=== PATIENT | female | born 1935 | race Caucasian/White ===

== ENCOUNTER 2016-11-15 22:38 | Observation (INO) | payer OTHER ==
--- NOTE | 2016-11-15 23:05 | EDPHY ---
H & P Stated Complaint: per ems - family says pt wandering around, having distinct memory def Time Seen by Provider: 11/15/16 23:01 HPI/ROS: HPI The patient presents as a stroke activation brought in by EMS from her home where at about 9:00 p.m. tonight she was last seen normal. At about 10:00 p.m. , her son noticed that she was feeling with things at her bedside and seems somewhat confused. He then asked her her name and his name and she did not respond at all. He has few minutes later showed him there to fingers and she was able to say 2. Over time she became more and more responsive and was eventually back to her usual self. She has been feeling well earlier in the day. She did not have any weakness in her arms or legs or any other symptoms. REVIEW OF SYSTEMS Constitutional: No fever, no chills. Eyes: No discharge. ENT: No sore throat. Cardiovascular: No chest pain, no palpitations. Respiratory: No cough, no shortness of breath. Gastrointestinal: No abdominal pain, no vomiting. Genitourinary: No hematuria. Musculoskeletal: No back pain. Skin: No rashes. Neurological: No headache. PMHx: Subdural hematoma, basal cell carcinoma, hypertension Soc Hx: Lives at home PHYSICAL General Appearance: Alert, no distress Eyes: Pupils equal and round no pallor or injection ENT, Mouth: Mucous membranes moist Respiratory: There are no retractions, lungs are clear to auscultation Cardiovascular: Regular rate and rhythm Gastrointestinal: Abdomen is soft and non-tender, no masses, bowel sounds normal Neurological: Alert, oriented to person and place, does not know the date or the year, able to follow commands, extraocular movements are full, no visual field cuts, cranial nerves are intact, no pronator drift, strength in legs is full, no limb ataxia, normal sensation, very mild a phase CLEM, calls a glove a hand, cannot identify a cactus, no dysarthria, no inattention or extinction Skin: Warm and dry, no rashes Musculoskeletal: Neck is supple non tender Extremities: symmetrical, full range of motion Psychiatric: Patient is oriented X 3, there is no agitation Source: Patient, Family, EMS Exam Limitations: No limitations - Personal History Tetanus Vaccine Date: October - Medical/Surgical History Hx Asthma: No Hx Chronic Respiratory Disease: No Hx Diabetes: No Hx Cardiac Disease: Yes Hx Renal Disease: No Hx Cirrhosis: No Hx Alcoholism: No Hx HIV/AIDS: No Hx Splenectomy or Spleen Trauma: No Other PMH: CA, SUBDURAL HEMATOMA, HTN. - Social History Smoking Status: Never smoked Constitutional: Initial Vital Signs Temperature (C) 36.4 C 11/15/16 22:46 Heart Rate 83 11/15/16 22:46 Respiratory Rate 16 11/15/16 22:46 Blood Pressure 216/115 H 11/15/16 22:46 O2 Sat (%) 98 11/15/16 22:46 O2 Delivery Mode Room Air Allergies/Adverse Reactions: No Known Allergies Allergy (Verified 11/15/16 22:48) Home Medications: Medication Instructions Recorded Valsartan [Diovan (*)] 40 mg PO HS PRN 06/19/13 ALPRAZolam [Xanax 0.5 MG (*)] 0.25 - 0.5 mg PO HS PRN 09/19/13 Herbals/Supplements -Info Only 1 each PO AD 09/19/13 Medical Decision Making - Diagnostics EKG Interpretation: EKG: Complete interpretation has been separately recorded in the [employer] archive. Summary impression: Left bundle branch block Imaging Results: Imaging Impressions Chest X-Ray 11/15/16 22:56 Impression: 1. Cardiomegaly. No failure. 2. No evidence of aspiration or acute pulmonary process. CT scan of head without contrast- no acute findings, scattered small foci of SWI hypointensity-?hemosiderin-tiny mets, amyloid, occult vascular malformations , other CT angio of head and neck- no acute findings Both discussed with Dr. Lezama of Radiology. I have reviewed the images myself. Imaging: Discussed imaging studies w/ valet cashier Radiologist, I viewed and interpreted images myself ED Course/Re-evaluation: I examined the patient shortly after her arrival. I have discussed the case with the paramedics. Her NIH stroke scale is low. Her symptoms are resolving. Her NIH stroke scale is 1 because she does not know the month. CT scan is performed and shows no acute findings. I discussed the case with the neurologist on-call from [facility]. We discussed that since the patient has resolving symptoms with low NIH stroke score she is not a tPA candidate currently. Also, she does have a history of a subdural hemorrhage, though this was several years ago. The neurologist explains that this is not an absolute contraindication if her symptoms become severe. She does not recommend blood pressure control unless her blood pressures are higher than 220/120. She will require admission to the hospital for monitoring. CTA of the head and neck were performed and were unremarkable for any ischemic stroke or clot. There is no metastatic disease visible. I discussed the case with the hospitalist restaurant operations manager Dr. Gleason. She will come to evaluate the patient. I have ordered her bed in the hospital. Other labs and studies for the patient are relatively unremarkable. The cause of her aphasia is really unclear at this time. Differential Diagnosis: This is an 81-year-old female who presents with a facial shot just prior to arrival. Her symptoms have now resolved. She cannot tell me the date but is otherwise oriented. - Data Points Laboratory Results: Laboratory Results 11/15/16 22:30 11/15/16 22:30 11/15/16 11/15/16 11/15/16 22:55 22:30 22:30 WBC RBC Hgb POC Hgb 12.9 gm/dL gm/dL (12.3-15.9) Hct POC Hct 38 % % (35.5-47.5) MCV MCH MCHC RDW Plt Count MPV Neut % (Auto) Lymph % (Auto) [place] % (Auto) Eos % (Auto) Baso % (Auto) Nucleat RBC Rel Count Absolute Neuts (auto) Absolute Lymphs (auto) Absolute Monos (auto) Absolute Eos (auto) Absolute Basos (auto) Absolute Nucleated RBC Immature Gran % Immature Gran # PT INR APTT POC Sodium 137 mEq/L mEq/L (134-144) Sodium 132 mEq/L L mEq/L (134-144) POC Potassium 3.8 mEq/L mEq/L (3.3-5.0) Potassium 4.2 mEq/L mEq/L (3.5-5.2) POC Chloride 99 mEq/L mEq/L (96-108) Chloride 102 mEq/L mEq/L (97-110) Carbon Dioxide 23 mEq/l mEq/l (22-31) Anion Gap 7 mEq/L L mEq/L (8-16) POC BUN 21 mg/dL mg/dL (7-23) BUN 21 mg/dL mg/dL (7-23) Creatinine 0.8 mg/dL mg/dL (0.6-1.0) POC Creatinine 0.9 mg/dL mg/dL (0.6-1.2) Estimated GFR > 60 Glucose 91 mg/dL mg/dL (70-100) POC Glucose 94 mg/dL mg/dL (70-100) Hemoglobin A1c Pending Estim Average Glucose Pending Calcium 9.1 mg/dL mg/dL (8.5-10.4) Total Bilirubin 0.7 mg/dL mg/dL (0.1-1.4) AST 36 IU/L IU/L (14-46) ALT 51 IU/L IU/L (9-52) Alkaline Phosphatase 101 IU/L IU/L (38-126) Total Protein 6.8 g/dL g/dL (6.3-8.2) Albumin 3.6 g/dL g/dL (3.5-5.0) 11/15/16 11/15/16 22:30 22:30 WBC 9.48 10^3/uL 10^3/uL (3.80-9.50) RBC 4.45 10^6/uL 10^6/uL (4.18-5.33) Hgb 12.2 g/dL L g/dL (12.6-16.3) POC Hgb Hct 38.1 % % (38.0-47.0) POC Hct MCV 85.6 fL fL (81.5-99.8) MCH 27.4 pg L pg (27.9-34.1) MCHC 32.0 g/dL L g/dL (32.4-36.7) RDW 15.3 % H % (11.5-15.2) Plt Count 320 10^3/uL 10^3/uL (150-400) MPV 9.2 fL fL (8.7-11.7) Neut % (Auto) 69.1 % % (39.3-74.2) Lymph % (Auto) 19.8 % % (15.0-45.0) [place] % (Auto) 8.9 % % (4.5-13.0) Eos % (Auto) 0.8 % % (0.6-7.6) Baso % (Auto) 0.3 % % (0.3-1.7) Nucleat RBC Rel Count 0.0 % % (0.0-0.2) Absolute Neuts (auto) 6.55 10^3/uL H 10^3/uL (1.70-6.50) Absolute Lymphs (auto) 1.88 10^3/uL 10^3/uL (1.00-3.00) Absolute Monos (auto) 0.84 10^3/uL H 10^3/uL (0.30-0.80) Absolute Eos (auto) 0.08 10^3/uL 10^3/uL (0.03-0.40) Absolute Basos (auto) 0.03 10^3/uL 10^3/uL (0.02-0.10) Absolute Nucleated RBC 0.00 10^3/uL 10^3/uL (0-0.01) Immature Gran % 1.1 % % (0.0-1.1) Immature Gran # 0.10 10^3/uL 10^3/uL (0.00-0.10) PT 14.5 SEC SEC (12.0-15.0) INR 1.14 (0.83-1.16) APTT 33.0 SEC SEC (23.0-38.0) POC Sodium Sodium POC Potassium Potassium POC Chloride Chloride Carbon Dioxide Anion Gap POC BUN BUN Creatinine POC Creatinine Estimated GFR Glucose POC Glucose Hemoglobin A1c Estim Average Glucose Calcium Total Bilirubin AST ALT Alkaline Phosphatase Total Protein Albumin Medications Given: Discontinued Medications Labetalol HCl (Trandate Injection) 10 mg IVP .EVERY 10-20 MIN PRN PRN Reason: Hypertension during/after t-PA Stop: 05/14/17 23:29 Last Admin: 11/15/16 23:53 Dose: 10 mg Point of Care Test Results: 11/15/16 22:55 POC Sodium 137 POC Potassium 3.8 POC Chloride 99 POC BUN 21 POC Creatinine 0.9 POC Glucose 94 Departure - Departure Disposition: [facility] Acute Clinical Impression: Aphasia, Basal cell carcinoma HTN (hypertension) Qualifiers: Hypertension type: essential hypertension Qualified Code(s): I10 - Essential ( primary) hypertension Condition: Fair
[2016-11-15 23:11] LABS: % IMMATURE GRANULYOCYTES 1.1 % (0.0-1.1); ADD DIFF? NO; ADD MORPH? NO; ADD SCAN? NO; ATYPICAL LYMPHOCYTE FLAG 10 (0-99); FRAGMENT RBC FLAG 0 (0-99); HEMATOCRIT 38.1 % (38.0-47.0); HEMOGLOBIN 12.2 g/dL (12.6-16.3); LEFT SHIFT FLG 0 (0-99); LIPEMIA HEMOLYSIS FLAG 80 (0-99); MEAN CELL HEMOGLOBIN 27.4 pg (27.9-34.1); MEAN CELL VOLUME 85.6 fL (81.5-99.8); MEAN PLATELET VOLUME 9.2 fL (8.7-11.7); PLATELET CLUMPS FLAG 0 (0-99); PLATELET COUNT 320 10^3/uL (150-400); RED BLOOD CELL COUNT 4.45 10^6/uL (4.18-5.33); RED CELL DISTRIBUTION WIDTH 15.3 % (11.5-15.2)
[2016-11-15 23:21] LABS: ALANINE AMINOTRANSFERASE 51 IU/L (9-52); ALBUMIN 3.6 g/dL (3.5-5.0); ALKALINE PHOSPHATASE 101 IU/L (38-126); ANION GAP 7 mEq/L (8-16); ASPARTATE AMINOTRANSFERASE 36 IU/L (14-46); BILIRUBIN,TOTAL 0.7 mg/dL (0.1-1.4); CALCIUM 9.1 mg/dL (8.5-10.4); CARBON DIOXIDE 23 mEq/l (22-31); CHLORIDE 102 mEq/L (97-110); CREATININE 0.8 mg/dL (0.6-1.0); GLOMERULAR FILTRATION RATE > 60; GLUCOSE 91 mg/dL (70-100); POTASSIUM 4.2 mEq/L (3.5-5.2); SODIUM 132 mEq/L (134-144); TOTAL PROTEIN 6.8 g/dL (6.3-8.2)
[2016-11-15 23:23] LABS: INR 1.14 (0.83-1.16); PROTIME(PATIENT) 14.5 SEC (12.0-15.0)
[2016-11-15] MEDS ORDERED: LABETALOL HCL 5 MG/ML 20 ML MDV IVP PRN (23:30)
[2016-11-15] MEDS ORDERED: IOPAMIDOL (ISOVUE 370) 100 ML BTL IV ONE (23:59)
[2016-11-16] MEDS ORDERED: ONDANSETRON DISINTEGRATING 4 MG TAB PO PRN (01:00)
[2016-11-16] MEDS ORDERED: NS 1,000 ML IV ONE (01:00)
[2016-11-16] MEDS ORDERED: ONDANSETRON 4 MG/2 ML VIAL IVP PRN (01:00)
[2016-11-16] MEDS ORDERED: ACETAMINOPHEN 325 MG TAB PO PRN (01:00)
[2016-11-16] MEDS ORDERED: ASPIRIN 81 MG CHEWABLE TAB PO ONE (01:55)
--- NOTE | 2016-11-16 02:23 | GHP ---
[f rep st] HISTORY AND PHYSICAL DATE OF ADMISSION: 11/16/2016 CHIEF COMPLAINT: Word-finding difficulty and confusion. HISTORY OF PRESENT ILLNESS: This is an 81-year-old female with a history of hypertension, medically treated, as well as an untreated basal cell carcinoma of the face, who presents by ambulance after the patient was unable to appropriately communicate her name or wishes to her son the evening of pre sentation. Per the patient's report, she was in her normal state of health, although emotionally up set earlier in the day, had had normal oral food and liquid intake. Denied any preceding dizziness, palpitations, chest pain, shortness of breath. Patient was then found by her son confused, unable to the tell her own name, location, or context of the situation. Son called 9--1. He reports that by the time paramedics were responding his mom appeared to be improving, was more oriented, and álvaro ropriately answering questions, and by the time she reached the emergency department, she seemed ezra r her baseline. Patient denies any numbness, tingling, or weakness of any of her extremities or bod y parts. Denies any vision changes, headache. PAST MEDICAL HISTORY: 1. Basal cell carcinoma of the face, untreated by choice. 2. Hypertension. 3. History of subdural hematoma 4 years ago, status post a fall. SOCIAL HISTORY: Negative for tobacco, alcohol, or illicit drugs. FAMILY HISTORY: Negative for strokes. REVIEW OF SYSTEMS: A 10-point review of systems is negative with the exception of that reported in the HPI. PHYSICAL EXAMINATION: VITAL SIGNS: Blood pressure 174/92, heart rate 77, respiratory rate 16, 97% on room air. GENERAL: This is an elderly female who seems frustrated, sitting in bed. HEENT: Not able for advanced tissue destruction related to the basal cell carcinoma with near complete oblitera tion of her nose. CARDIAC: Patient is regular rate and rhythm with a loud systolic murmur. PULMON GIGI: Clear to auscultation bilaterally. GASTROINTESTINAL: Positive bowel sounds. ABDOMEN: Soft and nontender. MUSCULOSKELETAL: Negative for any lower extremity edema. SKIN: Notable for erythe ma on the face surrounding the basal cell otherwise no rashes are appreciated. NEUROLOGIC: Sensati on is intact throughout. Strength is intact throughout. Patient is alert and oriented x3. DATA: White count 9.4, hematocrit 38.1, platelet count of 320. Sodium of 137. Creatinine is 0.8. Chest x-ray, which I personally reviewed and interpreted, shows no acute infiltrates or edema. CT of the head and neck, which I personally reviewed and interpreted, showed no gross abnormalities. P reliminary read from Radiology is normal. ASSESSMENT AND PLAN: This is an 81-year-old female presenting with acute aphasia and confusion. 1. Suspected transient ischemic attack. Patient's neurologic deficits have resolved. Will treat t he patient with low-dose aspirin x1 now. Have ordered MRI and echo for the morning, as well as a ne urology consultation. Continue to monitor overnight on [address] [place] [address] for any evolving neurologic deficits . 2. Hypertension. Will continue patient's home medications once reconciled. Her blood pressures ar e currently within desired goal of less than 220 systolic. 3. Basal cell carcinoma. Patient has advanced tissue destruction on her face. Has sought out care and does not wish to have chemotherapy or treatment conventionally. She is using tonic and dietary restriction plan. 4. Prophylaxis. Will treat with enoxaparin. 5. Diet. Once cleared by Speech, can take a cardiac diet. DISPOSITION: I expect in less than 2 midnights that the patient's neurologic evaluation is normal. I have discussed the case with the emergency room physician. Patient will be triaged to [address] [place] [address] neurologic monitoring and neurology consultation. /[id number]/MODL
[2016-11-16 02:32] LABS: HEMOGLOBIN A1C 5.3 % (4.0-6.0)
[2016-11-16] MEDS ORDERED: ASPIRIN 81 MG CHEWABLE TAB ONE (03:33)
--- NOTE | 2016-11-16 06:20 | CPEKG ---
Heart Rate: 79 RR Interval: 759 P-R Interval: 156 QRSD Interval: 148 QT Interval: 448 QTC Interval: 514 P [place]: 43 QRS [place]: -50 T Wave [place]: 109 EKG Severity - ABNORMAL ECG - EKG Impression: SINUS RHYTHM EKG Impression: LEFT BUNDLE BRANCH BLOCK Electronically Signed By: Harriett Collins 16-Nov-2016 07:18:05
[2016-11-16 08:06] LABS: COLOR YELLOW; LEUKOCYTE ESTERASE,URINE NEGATIVE (NEGATIVE); NITRITE,URINE POSITIVE (NEGATIVE)
[2016-11-16 08:32] LABS: BACTERIA 2+ /hpf (NONE SEEN); MUCUS TRACE /lpf (NONE-1+)
[2016-11-16] MEDS ORDERED: ENOXAPARIN 40 MG/0.4 ML SYR SC SCH (09:00)
--- NOTE | 2016-11-16 10:56 | ECHO ---
[id number] + + [id number] : : [place] [address] : : [phone] + + Adult Echocardiographic Report + -------+ :Name: TIFF MCCANN MStudy Date: 11/16/2016 09:11 AM : : Hospital Admission Number: [id number] Locati on: 359: :: 1935 Gender: Female Height: 63 in : :Age: 81 yrs Race: WH Weight: 108 lb : :Reason For Study: New neuro symptoms : : BSA: 1.5 meter s2 : + -------+ MMode/2D Measurements \T\ Calculations IVSd: 0.89 cm LVIDd: 3.7 cm EDV(Teich): 59.2 ml MV Diam: 3.5 cm LVPWd: 0.97 cm Ao root diam: LVOT diam: 2.0 cmLVLd ap4: 8.4 cm SV(MOD-sp4): 3.4 cm LVOT area: EDV(MOD-sp4): 52.0 ml LA dimension: 3.1 cm2 73.0 ml 3.6 cm LVLs ap4: 7.1 cm ESV(MOD-sp4): 21.0 ml EF(MOD-sp4): 71.2 % Normal Measurement Values: + + :LVIDd (3.5-5.7cm) IVSd (0.6-1.1cm) LVPWd (0.6-1.1cm) Aortic Root (2.0-3.7cm)Left Atrium (1.5-4.0cm): :LV Vol(d) (76-115ml) LV Vol(s) (29-48ml) Ejec Fraction (50-65%)PV Petey (0.6- 1.2m/s) TV Petey (0.4-1.0m/s) : :MV E Petey (0.8-1.0m/s)MV A Petey (0.3-1.0m/s)LVOT Petey (0.7-1.2m/s) Asc Ao Petey ( 0.9-1.8m/s) : + + Doppler Measurements \T\ Calculations MV E max petey: MV V2 max: Ao mean PG: LV V1 mean P.9 cm/sec 182.2 cm/sec 16.1 mmHg 3.2 mmHg MV A max petey: MV max P.3 mmHgAo V2 mean: LV V1 mean: 157.7 cm/sec MV V2 mean: 188.5 cm/sec 83.8 cm/sec MV E/A: 1.0 124.7 cm/sec Ao V2 VTI: 59.7 cm LV V1 VTI: 26.8 cm MV dec time: MV mean P.8 mmHgAVA(I,D): 1.4 cm2 0.31 sec MV V2 VTI: 56.6 cm MV area (1 diam): 9.5 cm2 MVA(VTI): 1.4 cm2 MV Flow area(1diam): 9.5 cm2 MR max petey: MR(RF 1 diam): 7.9 %SV(MV 1 diam): TR max petey: 548.4 cm/sec 540.2 ml 287.2 cm/sec MR max PG: SI(MV 1 diam): TR max P.3 mmHg 363.0 ml/m2 33.0 mmHg SV(LVOT): 82.0 ml RAP systole: 10.0 mmHg RVSP(TR): 43.0 mmHg RF(MV,Ao)(1 diam): -0.00 RF(MV,LVOT)(1diam): 0.85 Left Ventricle The left ventricle is normal in size. There is moderate concentric left ventricular hypertrophy. Left ventricular systolic function is normal. Ejection Fraction = 65-70%. Right Ventricle The right ventricle is normal in size and function. Atria The left atrium is severely dilated. The right atrium is mild to moderately dilated. Mitral Valve There is mitral anular calcification. The leaflets appear thickened and sclerotic. There is mild to moderate mitral stenosis and severe mitral regurgitation. There is no evidence of mitral valve prolapse. There is no mitral valve stenosis. There is severe mitral regurgitation. Tricuspid Valve Normal tricuspid valve. There is moderate tricuspid regurgitation. Right ventricular systolic pressure is 43mmHg. There is Doppler evidence for mild pulmonary hypertension. Aortic Valve The aortic valve appears to be trileaflet. The leaflets are thickened and sclerotic. There is mild aortic stenosis with a mean gradient of 16 mmHg. Mild valvular aortic stenosis. AV max PG is 27mmHG. AV mean PG is 16mmHG. ( could be underestimate). There is no aortic insufficiency. Pulmonic Valve The pulmonic valve is normal in structure and function. There is no pulmonic valvular regurgitation. Great Vessels The aortic root is normal size. Pericardium/Pleural There is no pericardial effusion. Conclusion A complete two-dimensional transthoracic echocardiogram was performed (2D, M-mode, Doppler and color flow Doppler). 1. The left ventricle is normal in size. There is moderate concentric left ventricular hypertrophy. Ejection Fraction = 65-70%. 2. There is biatrial enlargement. 3. There is mitral anular calcification. The leaflets appear thickened and sclerotic. There is mild to moderate mitral stenosis and severe mitral regurgitation. 4. The aortic valve appears to be trileaflet. The leaflets are thickened and sclerotic. There is mild aortic stenosis with a mean gradient of 16 mmHg. 5. There is Doppler evidence for mild pulmonary hypertension. Right ventricular systolic pressure is 43mmHg. 6. No old studies for comparison. Final Reading Physician: Helder Fontenot MD electronically signed on 11/16/2016 10:55 AM Ordering Physician: Mary Muir Performed By: Valarie Sanchez RDCS
[2016-11-16] MEDS ORDERED: ALPRAZolam 0.5 MG TAB PO PRN (11:57)
[2016-11-16] MEDS ORDERED: VALSARTAN 80 MG TAB PO SCH (11:58)
--- NOTE | 2016-11-16 12:02 | HOSPPROG ---
Hospitalist Progress Note Assessment/Plan: 81y female word finding issues. #suspect TIA workup negative await neurology consult per pt wishes #Basal CA cont outpt therapy #HTN restart home meds #Dispo home after neurology eval Subjective: Feeling fine. Wants to go home. Objective: Vital Signs Temp Pulse Resp BP Pulse Ox 36.3 C 87 21 H 174/89 H 91 L 11/16/16 07:48 11/16/16 07:48 11/16/16 07:48 11/16/16 07:48 11/16/16 07:48 11/15/16 11/16/16 11/17/16 05:59 05:59 05:59 Intake Total 200 Output Total 250 Balance 200 -250 PT 14.5 SEC (12.0-15.0) 11/15/16 22:30 INR 1.14 (0.83-1.16) 11/15/16 22:30 - Physical Exam Constitutional: appears nourished, chronically ill appearing Eyes: PERRL, anicteric sclera Ears, Nose, Mouth, Throat: hearing normal, ears appear normal Cardiovascular: No JVD, No edema Respiratory: no respiratory distress Gastrointestinal: No tenderness, No ascites Skin: warm Neurologic: AAOx3 Psychiatric: interacting appropriately, not anxious ICD10 Worksheet Patient Problems: Problems Problem Status Onset Traumatic injury Active Subdural hemorrhage Active Hypertensive disorder, systemic arterial Active Basal cell carcinoma of skin Active 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
[2016-11-16 12:27] VITALS: PULSE 81; RESP 20; TEMP 97.8; O2SAT 89
--- NOTE | 2016-11-16 13:06 | PDCONSULT ---
Assistant Toddler Teacher Note: HOSPITAL NEUROLOGY CONSULT REQUESTING:Mary Muir MD REASON: possible TIA HPI: This is an 81-year-old right-handed woman with a history of hypertension, remote subdural hematoma and basal cell carcinoma of the face (untreated by choice) who presented for an episode of confusion. Her 2 sons are at bedside and assists with the history. Patient lives independently, though, her son does live in the unit below her. Patient had apparently been acting a bit confused starting at 9:00 p.m. last night. She seemed restless and was walking about her home, adjusting pillows about the house. She seemed anxious too. Her son became concerned and around 10:00 p.m. asked her his name and she could not recall family members names. She was unable to recall her own name as well. This inspired activation of EMS. The patient was brought to the front door. Her son notes that he had to help her walk to the door in that he had to keep her focused on her path. She was not ataxic in her gait and did not have any apparent weakness. By the time EMS arrived, she was able to recall her own name. Her symptoms had cleared over about 4 hours. There was no indication of facial droop, slurred speech, focal/lateralizing weakness, sensory loss, visual disturbance, speech/language disturbance. It seems she was just more disoriented. Family notes no background of cognitive dysfunction. She had not been ill recently. On arrival , EMS noted her systolic blood pressure to be in the 190s. Her systolic blood pressure was in the 200s on arrival to the emergency department for which she received a dose of labetalol. Her systolic blood pressure remained elevated in the 150-170 is overnight. Patient is not particularly reminiscent of the events overnight. ROS: As per the HPI, otherwise a complete 12 point ROS was performed and is negative ALLERGIES AND MEDS: As recorded in the EMR - reviewed and reconciled PFSH: As per the intake H&P by Dr. Muir from yesterday EXAM: VS reviewed in EMR GEN: thin elderly woman laying in NAD HEENT: nose is markedly eroded from basal cell R>L, sclera anicteric, conjunctiva not injected, MMM, oropharynx clear, no scalp tenderness NECK: supple, nontender, no meningismus CV: RRR s1 s2 wo m/r/c/g. Carotid pulses 2+ wo bruit NEURO: MS: awake, alert, reduced attention, oriented to self, hospital month/day but not year. Speech nondysarthric. Content of speech tangential. No language disturbance. Follows commands. Attends to both sides. Some episodic memory loss on casual conversation. Mood euthymic. Good fund of knowledge. CN: pupils 3mm round and reactive. Fundi with sharp discs. VFF. Primary gaze centered. Full ocular motility. Facial sensation preserved. Face symmetric. Hearing grossly intact to finger rub. Palatoglossal movements intact. Shoulder shrug and head turn strong. MOTOR: reduced bulk throughout. Normal tone. No adventitial movements. Full power throughout. SENSORY: intact LT/PP throughout and symmetric. No extinction. COORD: no ataxia FN/HS. Elizabeth a bit labored. REFLEX: plantars down. No clonus. DTRS 2+/4. GAIT: deferred to PT safety evaluation DATA REVIEW: Labs reviewed in EMR A1c 5.3 LDL pending TTE preserved EF, severe LA enlargement, no mass/thrombus PERSONALLY INTERPRETED RESULTS AND DATA: CTA head neck - patent intracranial/extracranial vasculature MRI brain wo - global volume loss, confluent periventricular and scattered subcortical T2 FLAIR hyperintensity reflective of chronic microvascular ischemic change. Single focus of hemosiderin deposition in the left thalamus, otherwise areas of GRE signal follow sulcal vessels. No acute ischemic or hemorrhage. IMPRESSION AND RECOMMENDATIONS: // TRANSIENT DISTURBANCE OF COGNITION // ACCELERATED HTN - POSSIBLE HTN EMERGENCY Patient with an episode of confusion lasting hours which sounds more like global cerebral dysfunction rather than a TIA. No evidence of acute stroke on MRI. Symptoms duration of 4+ hours would likely have shown some degree of acute ischemia if this were to be vascular in origin. Top differential considerations include HTN emergency given her markedly elevated SBPs on presentation with symptoms resolution as the BP dropped. Also may be the first sign of a neurodegenerative condition. Could also represent global dysfunction from metabolic/toxic/infectious etiology, ie delirium. Primary team to investigate metabolic/infectious etiologies. UA with nitrates, WBCs, bacteria. Would recommend she followup with PCP for aggressive BP monitoring and optimization. Goal normotension, but balance with risk of overtreatment and medication side effect. Discussed taking home BP measures to present to PCP. Would add ASA 81mg daily given her HTN and severe microvascular ischemic change on MRI. Would consider adding statin based on her calculated ACC ASCVD risk as outpatient. Stroke education discussed, namely activating EMS for any abrupt onset neurologic dysfunction. Followup with PCP within 1 week.
[2016-11-16 14:02] VITALS: BP 135/82
--- NOTE | 2016-11-16 14:23 | GDS ---
[f rep st] DISCHARGE SUMMARY DISCHARGE DIAGNOSES: 1. Transient disturbance of cognition. 2. Accelerated hypertension. CONSULTATIONS: Neurology. STUDIES AND PROCEDURES DONE: 1. CT of the head. 2. CT angio of the head and neck. 3. MRI of the brain. 4. Echocardiogram. PHYSICAL EXAM: GENERAL: The patient is alert. VITAL SIGNS: Afebrile at 36.6, pulse is 81, respir atory rate is 20, blood pressure is 116/60. She is saturating 89% on room air. I have seen and evaluated the patient on the day of discharge. HOSPITAL COURSE: The patient is an 81-year-old female, who presented to the emergency room after co mplaints of abrupt confusion. She was evaluated during this hospitalization, received a consultatio n from Neurology. It was noted the patient likely suffered from transient disturbance of cognition. Her symptoms have completely resolved. She has had no acute evidence of stroke on her MRI. She w as also noted to have accelerated hypertension. Consider possible hypertensive emergency. This too has resolved independently, although the son and the patient both tell me her blood pressure is alw ays variable. The patient's condition has completely resolved. She will be initiated on aspirin 81 mg daily. I have recommended she follow up with her oncologist, Dr. Winchester, given her progressive basal-cell carcinoma which she is choosing homeopathic treatment for. The patient as well as her s on are in agreement with this plan. She will be discharged home. She will follow up with: 1. Dr. Winchester. 2. Her primary care physician, to discuss statin therapy given her elevated laboratory evaluation. I have not provided any prescriptions for the patient at time of disposition. /[id number]/MODL
== END 2016-11-16 14:44 | disposition home or self-care (01) ==
LOC: EDUNIT# → F3N 11-16 03:00
PROVIDERS: ADMIT Hospitalist; ATTEND Hospitalist
DX: G31.84 Mild cognitive impairment of uncertain or unknown etiology (principal); I10 Essential (primary) hypertension
CPT/HCPCS: 70450; 70496; 70498; 70551; 71010; 93005; 93306; G0378; J1650; J3490; Q9967; 82947-QW; 96374

== ENCOUNTER 2017-10-15 20:03 | Emergency (ER) | payer OTHER ==
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
[2017-10-15 20:44] LABS: PLATELET COUNT 362 10^3/uL (150-400)
[2017-10-15 21:52] VITALS: BP 192/107
== END 2017-10-15 21:51 | disposition home or self-care (01) ==
LOC: EDUNIT#
DX: R41.0 Disorientation, unspecified (principal); I10 Essential (primary) hypertension; Z79.82 Long term (current) use of aspirin; Z85.828 Personal history of other malignant neoplasm of skin